=== PATIENT | female | born 1970 | race Two or more races ===

== ENCOUNTER 2025-04-15 17:58 | Emergency (ER) | payer MEDICAID, SELFPAY ==
[2025-04-15 18:32] VITALS: BP 160/100; PULSE 78; RESP 18; TEMP 36.7; O2SAT 97
[2025-04-15 18:33] VITALS: BMI 27.9
--- NOTE | 2025-04-15 18:50 | EDNOTE_ITS ---
ED Wound/Laceration-RME/HPI General Chief Complaint: Wound/Laceration Stated Complaint: Left finger laceration X 2 weeks Time Seen by Provider: 04/15/25 18:19 Arrival date/time: 04/15/25 17:58 This is a case of 54-year-old female who came in in the emergency room due to laceration on the third finger left hand for 2 weeks patient accidentally cut his hand with a knife patient did not sought consult with any doctor due to redness and mild swelling thus patient decided to sought consult here in the emergency room tetanus shot is not up-to-date Limitations: no limitations Related Data Previous Rx's ?Medication ?Instructions ?Recorded clindamycin HCl 300 mg capsule 300 mg PO TID #21 caps 05/24/19 hydrocodone 5 mg-acetaminophen 325 1 tab PO BID PRN pa in #14 tabs 05/24/19 mg tablet ([place]) ibuprofen 800 mg tablet 800 mg PO TID PRN pain #30 t abs 05/24/19 ibuprofen 800 mg tablet 800 mg PO TID PRN pain #30 t abs 07/31/21 cephalexin 500 mg capsule 500 mg PO QID 10 days #40 ca ps 04/15/25 mupirocin 2 % topical ointment 1 applic topical TID #2 2 grams 04/15/25 Allergies Allergy/AdvReac Type Severity Reaction Status Date / Time No Known Allergies Allergy Verified 04/15/25 18:02 Review of Systems Review of Systems Systems Reviewed: All systems reviewed, normal except as documented Constitutional Constitutional: Reports system reviewed and no additional complaints, except as documented Cardiovascular Cardiovascular: Reports system reviewed and no additional complaints, except as documented Respiratory Respiratory: Reports system reviewed and no additional complaints, except as documented Gastrointestinal Gastrointestinal: Reports system reviewed and no additional complaints, except as documented Musculoskeletal Musculoskeletal: Reports other (Finger pain) Integumentary/Breasts Skin/Breast: Reports other (Laceration) Neurologic Neurologic: Reports system reviewed and no additional complaints, except as documented and Reports as per HPI Past Medical History Past Medical History CARDIAC: Negative Cardiac Disorders, Congestive Heart Failure or Hypertension RESPIRATORY: Negative Chronic Obstructive Pulmonary Disease (COPD) or Asthma GENITOURINARY: Negative Renal Disease ENDOCRINE: Negative Diabetes Mellitus Type 1 or Diabetes Mellitus Type 2 HEMATOLOGIC: Negative Sickle Cell Disease Social History SMOKING STATUS: Never smoker SUBSTANCE USE: does not use ED Exam General Limitations: Present no limitations General appearance: Present alert and in no apparent distress Head Head exam: Present atraumatic Eye Eye exam: Present normal appearance, PERRL and EOMI ENT ENT exam: Present normal exam, normal oropharynx and mucous membranes moist Neck Neck exam: Present normal inspection, full ROM and trachea midline; Absent tenderness, meningismus, lymphadenopathy or thyromegaly Chest Chest inspection: Present normal inspection and symmetric chest wall rise Respiratory Respiratory exam: Present normal lung sounds bilaterally; Absent respiratory distress, wheezes, stridor, accessory muscle use or prolonged expiratory phase Cardiovascular Cardiovascular exam: Present regular rate, normal rhythm and normal heart sounds Abdominal Exam Abdominal exam: Present soft and normal bowel sounds Extremities Exam Extremities exam: Present normal inspection and full ROM Back Exam Back exam: Present normal inspection and full ROM Neurological Exam Neurological exam: Present alert, oriented X3, CN II-XII intact, normal gait and reflexes normal; Absent motor sensory deficit Psychiatric Psychiatric exam: Present normal affect and normal mood Skin Skin exam: Present warm, dry, intact, normal color and other (Patient sustained a 2 cm laceration on the third finger left hand flap no injury to the tendon muscle or bone with some redness no discharge and mild swelling suggestive of infection no abscess no cellulitis ROM intact neurovascular) Course Quality Measures none Orders Category Date Time Status Wound Care NOW Care 04/15/25 18:41 Active TET,DIP/PERT AC (Adult)-Tdap [Boostrix Adult (Tdap) Med 04/15/25 18:41 Discontinued Vacc] 0.5 ml IMI .ONCE ONE Vital Signs Vital signs: Vital Signs Temperature 98.0 F 04/15/25 18:32 Pulse Rate 78 04/15/25 18:32 Respiratory Rate 18 04/15/25 18:32 Blood Pressure 160/100 H 04/15/25 18:32 Pulse Oximetry (%) 97 04/15/25 18:32 Oxygen Delivery Method Room Air 04/15/25 18:32 Oxygen saturation 97% in room air Wound / Laceration MDM Narrative MDM Narrative:: This is a case of 54-year-old female who came in in the emergency room due to laceration on the third finger left hand for 2 weeks patient accidentally cut his hand with a knife patient did not sought consult with any doctor due to redness and mild swelling thus patient decided to sought consult here in the emergency room tetanus shot is not up-to-date physical examination patient is awake alert oriented not in distress nontoxic looking noted finger exam Patient sustained a 2 cm laceration on the third finger left hand flap no injury to the tendon muscle or bone with some redness no discharge and mild swelling suggestive of infection no abscess no cellulitis ROM intact neurovascular intact based on my physical exam and history patient laceration unable to suture or repair laceration is old and infected patient was given Tdap here in the emergency room wound was cleaned with normal saline and apply triple antibiotic patient was prescribed cephalexin and mupirocin for the infection patient will follow-up with PCP in 2 days for worsening symptoms patient is notified to return in the emergency room immediately patient will do our wound care daily Patient was discharged with comfortable condition walking with stable gait. Patient verbalized no further complains explained diagnosis and answered patient question. Patient is comfortable with the proposed management plan including the need to follow up with his/her primary care physician and any specialist if applicable Discussed patient for any urgent condition or worsening sx, He/She needed to go to emergency room immediately or call 911. Patient acknowledge the responsibility to follow up as instructed and to monitor her/his symptoms. For any persistence of the symptoms for more than 3-5 days return precaution advised. Discussed the result of the test and was given printed discharge instruction Patient data External records reviewed:: [facility] previous records Clinical information provided by:: patient Social determinants that could affect healthcare access:: none Patient has the following chronic illnesses:: None How is presenting disease/condition affected by chronic disease/condition?: no chronic disease Evaluation data The following diagnostics were reviewed and interpreted by me:: other (specify) (None) Lab and/or radiology exams considered but not ordered:: None Interpretation Summary: None Medications / Prescriptions Medications or Prescriptions considered but not ordered:: Given Medication administrations:: Medication Administration History Discontinued Medications Diphtheria/Tetanus/Acell Pertussis (Diphth,Pertuss(Acell),Tet Vac 0.5 Ml Syr- Adult) 0.5 ml IMi .ONCE ONE Stop: 04/15/25 18:42 Given Consultations Consultation(s) initiated? (list below): No Diagnosis Wound Differential Diagnosis: laceration, abscess and abrasion Most likely diagnosis given after review of the tests above:: Infected lacerated wound finger Admission Indicated Admission indicated?: not indicated Explain why admission is indicated or not indicated:: Not indicated Admission Request Was there a request for admission?: No Admission Attestation Admission request attestation: Not indicated Disposition Plan Disposition Plan: Discharge Discharge Attestation Discharge Attestation: The patient and all family members were given an opportunity to ask questions and understood the discharge instructions. Discharge instructions specifically effects, indications for sooner follow up or return to the emergency department, and the expected course of current diagnosis. Patient condition: Stable Discharge Plan Plan Patient Disposition: HOME (Self Care) Patient condition on transfer: Stable Prescriptions/Referrals Prescriptions/Med Rec: New cephalexin 500 mg capsule 500 mg PO QID 10 Days Qty: 40 0RF mupirocin 2 % ointment 1 applic topical TID Qty: 22 0RF No Action clindamycin HCl 300 mg capsule 300 mg PO TID Qty: 21 0RF ibuprofen 800 mg tablet 800 mg PO TID PRN (Reason: pain) Qty: 30 0RF hydrocodone-acetaminophen [[place]rient] 5-325 mg tablet 1 tab PO BID MDD 2 PRN (Reason: pain) Qty: 14 0RF ibuprofen 800 mg tablet 800 mg PO TID PRN (Reason: pain) Qty: 30 0RF Problem List Clinical Impression: Finger laceration, Infected wound Patient/Caregiver Discharge Instructions Education Materials: ED INFECTED LACERATION Not Sutured Additional Instructions: Follow-up with your primary care physician in 2 days for reevaluation and recheck for any worsening symptoms or any emergent concerns such as redness swelling discharge from the wound pain fever chills return to the emergency room immediately or call 911 finish the course of antibiotic wound care daily is advised Print Language: German Stand Alone Forms: Mary Award Info., Patient Portal Info Letter SHAINA/HOA Supervising Physician NOEMI Supervising Physician: dr stephen
[2025-04-15] MEDS: DIPHTH,PERTUSS(ACELL),TET VAC 0.5 ML SYR- ADULT IMi (19:00)
[2025-04-15] MEDS: cefTRIAXone 1,000 MG, LIDOCAINE 1% 20 ML 2.1 ML IM (19:23)
== END 2025-04-15 19:36 | disposition home or self-care (01) ==
LOC: SERX 18:52
PROVIDERS: Emergency Provider Emergency Medicine; PCP Family Medicine
DX: S61.213A Laceration without foreign body of left middle finger without damage to nail, initial encounter (principal); L08.9 Local infection of the skin and subcutaneous tissue, unspecified; W26.0XXA Contact with knife, initial encounter; Z23 Encounter for immunization
CPT/HCPCS: 90471; 90715; 96372; 99283; J0696; J3490

== ENCOUNTER → 2025-06-30 | Outpatient (CLI) | payer MEDICAID, SELFPAY ==
--- NOTE | 2025-06-30 13:15 | XR_ITS ---
Examination: Screening digital mammography, bilateral Computer aided detection 3-D breast Tomosynthesis, bilateral Date and time of exam: June 30, 2025 1339 hours, compared to mammograms dating to May 31, 2019 Indication: Screening Technique: Nonmagnified MLO, CC views of the breasts to been obtained, reconstructed from 3-D Tomosynthesis images. R2 computer aided detection program utilized for evaluation of suspicious masses and/or abnormal calcifications. 3-D Tomosynthesis images obtained. Findings: The breasts are heterogeneously dense, which may obscure small masses 14 mm nodular asymmetry lower left breast 5.7 cm from nipple Left breast markers Impression: BI-RADS Category 0: Incomplete: Need additional imaging evaluation Recommend follow-up spot tomographic views were outer quadrant right breast and bilateral breast sonography to complete the workup
== END | disposition home or self-care (01) ==
PROVIDERS: PCP Family Medicine; Referring Provider Obstetrics & Gynecology; Visit Provider Obstetrics & Gynecology
DX: Z12.31 Encounter for screening mammogram for malignant neoplasm of breast (principal); R92.8 Other abnormal and inconclusive findings on diagnostic imaging of breast
CPT/HCPCS: 77063; 77067

== ENCOUNTER 2025-09-20 19:38 | Emergency (ER) | payer MEDICAID, SELFPAY ==
[2025-09-20 19:39] VITALS: BMI 28.3
--- NOTE | 2025-09-20 20:03 | PD.EDABDPN ---
ED Abdominal Pain RME/HPI General Chief Complaint: Abdominal Pain Stated complaint: PT THINKS SHE SWALLOWED GLASS Time seen by provider: 09/20/25 21:05 Arrival date/time: 09/20/25 19:38 RME / HPI RME / HPI narrative: See [facility] for Dr. Wyman's HPI Documentation. Related Data Previous Rx's ?Medication ?Instructions ?Recorded clindamycin HCl 300 mg capsule 300 mg PO TID #21 caps 05/24/19 hydrocodone 5 mg-acetaminophen 325 1 tab PO BID PRN pain #14 tabs 05/24/19 mg tablet ([place]) ibuprofen 800 mg tablet 800 mg PO TID PRN pain #30 tabs 05/24/19 ibuprofen 800 mg tablet 800 mg PO TID PRN pain #30 tabs 07/31/21 mupirocin 2 % topical ointment 1 applic topical TID #22 grams 04/15/25 acetaminophen 300 mg-codeine 30 mg 2 tab PO Q8H PRN pain #20 tabs 09/20/25 tablet ciprofloxacin HCl 500 mg tablet 500 mg PO BID #20 tabs 09/20/25 (Cipro) metronidazole 500 mg tablet 500 mg PO BID 10 days #20 tabs 09/20/25 ondansetron 4 mg disintegrating 4 mg PO TID PRN nausea and 09/20/25 tablet vomiting 30 days #10 tabs Allergies Allergy/AdvReac Type Severity Reaction Status Date / Time No Known Allergies Allergy Verified 04/15/25 18:02 Review of Systems Review of Systems Systems Reviewed: All systems reviewed, normal except as documented ED Exam Narrative Physical exam: See [facility] for Dr. Wyman's Physical Exam Documentation. Course Quality Measures none Orders Category Date Time Status CT abdomen pelvis wo con Stat Exams 09/20/25 20:56 Completed US pelvic complete Stat Exams 09/20/25 20:56 Completed Amylase Stat Lab 09/20/25 21:07 Completed Bilirubin,Direct Stat Lab 09/20/25 21:07 Completed CBC Stat Lab 09/20/25 21:07 Completed CMP [Comprehensive Metabolic Panel] Stat Lab 09/20/25 21:07 Completed Lipase Stat Lab 09/20/25 21:07 Completed Magnesium Stat Lab 09/20/25 21:07 Completed UA, C/S IF [Urinalysis, C/S if Indicated] Stat Lab 09/20/25 21:29 Completed ACETAMINOPHEN w/COD 300-30 [Tylenol w/Cod #3] Med 09/20/25 20:56 Discontinued 2 tab PO X1 ONE Ciprofloxacin HCl [Ciprofloxacin] Med 09/20/25 22:09 Discontinued 500 mg PO X1 ONE Ondansetron Odt [Zofran Odt] Med 09/20/25 20:56 Discontinued 4 mg PO X1 ONE metroNIDAZOLE [Flagyl] Med 09/20/25 22:09 Discontinued 500 mg PO X1 ONE Vital Signs Vital signs: Vital Signs Temperature 97.6 F 09/20/25 21:24 Pulse Rate 83 09/20/25 21:24 Respiratory Rate 18 09/20/25 21:24 Blood Pressure 150/93 H 09/20/25 21:24 Pulse Oximetry (%) 99 09/20/25 21:24 Oxygen Delivery Method Room Air 09/20/25 21:24 Abdominal Pain MDM MDM Narrative MDM Narrative:: This section includes all my notes and documentations, including HPI, PE, and ED course. Leonel Wyman MD HPI: 54 y/o female presents with lower abdominal pain x 3 days. No fever or chills. Some nausea, no vomiting. No other complaints. ROS: All negative except as documented in HPI. Physical Exam: General: Alert and oriented. Appears uncomfortable. Eyes: Conjunctivae and lids clear. ENT: No nasal congestion. Neck: Supple. Heart: RRR. Lungs: No respiratory distress. Good air movement. No rhonchi, wheezing, rales. Abdomen: Soft with lower quadrant tenderness. Normal bowel sounds. No distension. No rebound or guarding. Back: No CVA tenderness. Skin: Warm and dry. Neuro: Alert and oriented X 3. I reviewed all diagnostic test results: My review of the Abdomen/Pelvis CT report is diverticulitis. My review of the Pelvis US report is: No acute findings. Blood tests and urine tests unremarkable At this point, diagnoses include: Diverticulitis Treatment here included: Two Tylenol #3 Zofran ODT 4 mg Flagyl 500 mg PO Ciprofloxacin 500 mg PO She felt much better. Recommended a trial of outpatient treatment. Based on my best medical judgment, made decision no further evaluation or treatment indicated at this time. Patient understands and agrees to the discharge instructions customized and printed, see below. Discharge instructions from Dr. Wyman: 1. After evaluation, your symptoms are due to diverticulitis.? Infection of your colon. 2. Take Cipro and Flagyl for the infection. 3. Zofran for nausea/vomiting. 4. Tyleno with codeine for severe pain. 5. Clear liquid diet for 24 hours then advance as tolerated. 6. To prevent dehydration, increase oral fluid and maintain clear urine.? If dark or yellow, increase oral fluid. 7. See a private doctor on 09/22/2025 for recheck. To make sure there is no serious intra-abdominal condition, ask for help with more investigation not available here in the ER.? Such as EGD or scoping the stomach, colonoscopy or scoping the colon, and referral to see gift shop manager. Ask to review all test results and official radiology reports, to make sure you receive all necessary follow-ups and monitoring. 8. Read attached handout.? Seek immediate medical care with worsening, fever, or with any concerns. Leonel Wyman MD Patient data External records reviewed:: [facility] previous records (Reviewed prior ED records from 04/15/25. Patient was seen for Finger laceration.) Clinical information provided by:: patient Social determinants that could affect healthcare access:: none Patient has the following chronic illnesses:: None reported How is presenting disease/condition affected by chronic disease/condition?: no chronic disease Evaluation data The following diagnostics were reviewed and interpreted by me:: lab results and radiology exam(s) Lab and/or radiology exams considered but not ordered:: None Interpretation Summary: I reviewed all diagnostic test results: My review of the Abdomen/Pelvis CT report is diverticulitis. My review of the Pelvis US report is: No acute findings. Blood tests and urine tests unremarkable. Medications / Prescriptions Medications or Prescriptions considered but not ordered:: None Medication administrations:: Medication Administration History Discontinued Medications Acetaminophen/Codeine Phosphate (Acetaminophen W/Cod 300-30 Tablet) 2 tab PO X1 ONE Stop: 09/20/25 20:57 Last Admin: 09/20/25 21:30 Dose: 2 tab Documented By: ANTONIO Ciprofloxacin (Ciprofloxacin Hcl 250 Mg Tablet) 500 mg PO X1 ONE Stop: 09/20/25 22:10 Last Admin: 09/20/25 22:53 Dose: 500 mg Documented By: ANTONIO Metronidazole (Metronidazole 250 Mg Tablet) 500 mg PO X1 ONE Stop: 09/20/25 22:10 Last Admin: 09/20/25 22:53 Dose: 500 mg Documented By: ANTONIO Ondansetron HCl (Ondansetron Odt 4 Mg Tabrap) 4 mg PO X1 ONE; Protocol Stop: 09/20/25 20:57 Last Admin: 09/20/25 21:30 Dose: 4 mg Documented By: ANTONIO Treatment here included: Two Tylenol #3 Zofran ODT 4 mg Flagyl 500 mg PO Ciprofloxacin 500 mg PO Consultations Consultation(s) initiated? (list below): No Diagnosis Differential diagnosis abdominal pain: acute appendicitis, calculus of kidney, constipation, diverticulitis, endometriosis, gastroenteritis, pancreatitis, small bowel obstruction and other Most likely diagnosis given after review of the tests above:: Diverticulitis Admission Indicated Admission indicated?: not indicated Explain why admission is indicated or not indicated:: With significant improvement and no condition needing emergent intervention, there was no indication for admission. Admission Request Was there a request for admission?: No Disposition Plan Disposition Plan: Discharge Discharge Attestation Discharge Attestation: The patient and all family members were given an opportunity to ask questions and understood the discharge instructions. Discharge instructions specifically effects, indications for sooner follow up or return to the emergency department, and the expected course of current diagnosis. Patient condition: Stable Discharge Plan Plan Patient Disposition: HOME (Self Care) Prescriptions/Referrals Prescriptions/Med Rec: New metronidazole 500 mg tablet 500 mg PO BID 10 Days Qty: 20 0RF acetaminophen-codeine 300-30 mg tablet 2 tab PO Q8H MDD 6 PRN (Reason: pain) Qty: 20 0RF ciprofloxacin HCl [Cipro] 500 mg tablet 500 mg PO BID Qty: 20 0RF ondansetron 4 mg tablet,disintegrating 4 mg PO TID PRN (Reason: nausea and vomiting) 30 Days Qty: 10 0RF No Action clindamycin HCl 300 mg capsule 300 mg PO TID Qty: 21 0RF ibuprofen 800 mg tablet 800 mg PO TID PRN (Reason: pain) Qty: 30 0RF hydrocodone-acetaminophen [[place]] 5-325 mg tablet 1 tab PO BID MDD 2 PRN (Reason: pain) Qty: 14 0RF ibuprofen 800 mg tablet 800 mg PO TID PRN (Reason: pain) Qty: 30 0RF mupirocin 2 % ointment 1 applic topical TID Qty: 22 0RF Referrals: Gera Martínez MD [Primary Care Provider, Family Practice] - In 1 week Problem List Clinical Impression: Diverticulitis Patient/Caregiver Discharge Instructions Discharge Activity: activity as tolerated Education Materials: ED Diverticulitis Additional Instructions: Discharge instructions from Dr. Wyman: 1. After evaluation, your symptoms are due to diverticulitis.? Infection of your colon. 2. Take Cipro and Flagyl for the infection. 3. Zofran for nausea/vomiting. 4. Tyleno with codeine for severe pain. 5. Clear liquid diet for 24 hours then advance as tolerated. 6. To prevent dehydration, increase oral fluid and maintain clear urine.? If dark or yellow, increase oral fluid. 7. See a private doctor on 09/22/2025 for recheck. To make sure there is no serious intra-abdominal condition, ask for help with more investigation not available here in the ER.? Such as EGD or scoping the stomach, colonoscopy or scoping the colon, and referral to see gift shop manager. Ask to review all test results and official radiology reports, to make sure you receive all necessary follow-ups and monitoring. 8. Read attached handout.? Seek immediate medical care with worsening, fever, or with any concerns. Print Language: Macanese Stand Alone Forms: Mary Award Info., Patient Portal Info Letter
--- NOTE | 2025-09-20 20:56 | XR_ITS ---
Examination: Pelvic ultrasound, transabdominal, complete Technique: Transabdominal ultrasound of the pelvis performed using grayscale imaging Date and time of exam: September 20, 2025, 2133 hours INDICATIONS: Pelvic pain beginning 4 days ago FINDINGS: Uterus 7.3 cm endometrial stripe 0.4 cm No uterine mass Right ovary 2.6 cm arterial flow Left ovary 3.2 cm arterial flow IMPRESSION: Negative study
--- NOTE | 2025-09-20 20:56 | XR_ITS ---
Examination: CT abdomen and pelvis without contrast. Coronal 3-D reconstructions. Sagittal 2-D reconstructions. Date and time of exam: September 20, 2025, 2114 hours INDICATIONS: Patient swallowed glass today with lower abdominal pain vomited blood CTDI: vol (mGy): 8.67 DLP: (mGycm): 433 Technique: Axial images of the abdomen have been obtained, 3 mm slice thickness Intravenous contrast material has not been administered. Low dose protocols were performed. One or more of the following dose reduction techniques were used; automated exposure control, adjustment of the mA and/or KV according to patient size, use of iterative reconstruction technique. Findings: Wall of the distal esophagus is mildly thickened image 15 no visualized liver or splenic lesion no pancreatic or adrenal mass No renal or ureteral calculi No opaque foreign body projects in the gastrointestinal tract No bowel obstruction Negative for pneumoperitoneum 20 mm fat-containing umbilical hernia Focal fat inflammation axial image 137, measuring 16 mm with inflammation about diverticula in the descending colon No peridiverticular abscess Bladder intact IMPRESSION: Negative for opaque foreign bodies Acute diverticulitis distal descending colon, no peridiverticular abscess Mild thickening of the wall of the esophagus, seen with reflux esophagitis, consider elective standard fluoroscopically guided esophagram follow-up
[2025-09-20 21:20] LABS: Basophils # (Auto) 0.1 Thou/mm3 (0.0-0.2); Basophils % (Auto) 1 % (0-2.5); Eosinophils # (Auto) 0.3 Thou/mm3 (0.0-0.5); Eosinophils % (Auto) 3 % (0-10); Hematocrit 38.1 % (36.0-46.0); Hemoglobin 12.5 g/dL (12.0-16.0); Immature Granulocytes Auto 0.02 Thou/mm3 (0.00-0.00); Lymphocytes # (Auto) 3.8 Thou/mm3 (1.0-4.8); Lymphocytes % (Auto) 33 % (10-50); Mean Corpuscular HGB Conc 32.8 g/dl (31.0-37.0); Mean Corpuscular Hemoglobin 28.5 pg (25.0-35.0); Mean Corpuscular Volume 87 fL (80-100); Monocytes # (Auto) 0.9 Thou/mm3 (0.0-0.8); Monocytes % (Auto) 8 % (0-12); Neutrophils # (Auto) 6.3 Thou/mm3 (1.8-7.7); Neutrophils % (Auto) 55 % (37-80); Nucleated Red Blood Cell # 0.00 Thou/mm3 (0.00-0.00); Nucleated Red Blood Cell % 0 /100 WBC (0); Platelet Count 398 Thou/mm3 (140-440); RDW Standard Deviation 41.6 fL (36.4-46.3); Red Blood Count 4.39 Miln/mm3 (4.00-5.20); White Blood Count 11.4 Thou/mm3 (3.6-11.0)
[2025-09-20 21:24] VITALS: BP 150/93; PULSE 83; RESP 18; TEMP 36.4; O2SAT 99
[2025-09-20] MEDS: ACETAMINOPHEN w/COD 300-30 TABLET 2 TAB PO (21:30)
[2025-09-20] MEDS: ONDANSETRON ODT 4 MG TABRAP PO (21:30)
[2025-09-20 21:36] LABS: Alanine Aminotransferase 24 U/L (10-49); Albumin, Serum 4.7 gm/dL (3.5-5.0); Albumin/Globulin Ratio 1.6 (1.2-2.2); Alkaline Phosphatase 94 U/L (46-116); Amylase 92 U/L (30-118); Anion Gap 9 (7-16); Aspartate Amino Transferase 25 U/L (0-34); BUN/Creatinine Ratio 14 Ratio (12-20); Bilirubin,Direct 0.2 mg/dL (0.0-0.3); Bilirubin,Total 0.6 mg/dL (0.3-1.2); Blood Urea Nitrogen 11 mg/dL (9-23); Calcium 9.4 mg/dL (8.3-10.6); Calcium (Corrected) 9.4 mg/dL (8.5-10.1); Carbon Dioxide 29.0 mMol/L (20.0-31.0); Chloride 106 mMol/L (98-107); Creatinine (Component) 0.8 mg/dL (0.6-1.3); Estimated Creatinine Clearance 77.8 mL/min (>60); Globulin 3.0 gm/dL (2.3-3.5); Glucose 95 mg/dL (74-106); Lipase 42 U/L (12-53); Magnesium 1.8 mg/dL (1.6-2.6); Osmolality,Calculated 286 (275-295); Potassium 4.2 mMol/L (3.4-5.1); Sodium 144 mMol/L (136-145); Total Protein 7.7 gm/dL (5.7-8.2); eGFR > 60 See Note
[2025-09-20 21:57] LABS: Collection Type, Urine Clean Catch
[2025-09-20 22:05] LABS: Bacteria,Urine Rare; Bilirubin,Urine Negative (Negative); Blood,Urine 2+ (Negative); Clarity,Urine Clear (Clear/Hazy); Color,Urine Colorless (Lt Yel-Yel); Culture Indicated,Urine Not Indicated; Glucose, Urine Negative (Negative); Ketones,Urine Negative (Negative); Leukocyte Esterase,Urine Positive (Negative); Nitrite,Urine Negative (Negative); PH,Urine 8.0 (5.0-7.0); Protein,Urine Negative (Neg - Trace); RBC,Urine 4 /hpf (0-3); Specific Gravity,Urine 1.009 (1.001-1.035); Squamous Epithelial Cell,Urine 3 /hpf (0-5); Urobilinogen,Urine Negative mg/dL (0.0-1.0); WBC,Urine 2 /hpf (0-5)
[2025-09-20] MEDS: CIPROFLOXACIN HCL 250 MG TABLET 500 MG PO (22:53)
[2025-09-20 22:56] VITALS: RESP 16
== END 2025-09-20 22:56 | disposition home or self-care (01) ==
PROVIDERS: Emergency Provider Emergency Medicine; PCP Family Medicine
DX: K57.32 Diverticulitis of large intestine without perforation or abscess without bleeding (principal); R10.20 Pelvic and perineal pain unspecified side; R11.2 Nausea with vomiting, unspecified
CPT/HCPCS: 36415; 74176; 76856; 80053; 81001; 82150; 82248; 83690; 83735; 85025; 99283; Q0162; A9270